=== PATIENT | female | born 1975 | race Caucasian/White ===

== ENCOUNTER → 2016-07-03 | Outpatient (CLI) | payer BC, OTHER ==
[~2016-07-03] MED LIST: ASPI81TA28 PO; CYAN500T PO; ENOX100I SQ; ENOX40IN SQ; LABE100T16 PO; METO25TA56 PO; MISCCAP52 PO; NIAC500T7 PO; PRENTAB26 PO; SERAPEPTASE PO; VNTHFA/IN INH
--- NOTE | 2016-07-03 14:21 | DIAGNOSTIC IMAGING REPORT ---
CHEST 2 VIEWS ROUTINE CLINICAL HISTORY: Cough, lower respiratory tract infection. COMPARISON STUDY: No previous studies for comparison. FINDINGS: The cardiac and mediastinal contours are normal. There is no evidence of focal pulmonary consolidation. There is no evidence of failure. No pleural effusions are visualized.[ IMPRESSION: No active disease in the chest. Electronically signed by: Matthew Burk M.D. 07/03/2016 2:20 PM Dictated Date/Time: 07/03/2016 2:19 PM
== END | disposition home or self-care (01) ==
LOC: C.RAD 14:05
PROVIDERS: ATTEND Plastic Surgery
DX: J22 Unspecified acute lower respiratory infection (principal)

== ENCOUNTER 2016-09-17 17:39 | Emergency (ER) | payer BC, OTHER ==
[~2016-09-17] VITALS: Ht 172.7 cm; Wt 99.3 kg
[~2016-09-17 17:39] MED LIST changes: -ASPI81TA28 PO; -CYAN500T PO; -ENOX100I SQ; -ENOX40IN SQ; -METO25TA56 PO; -MISCCAP52 PO; -NIAC500T7 PO; -SERAPEPTASE PO; -VNTHFA/IN INH
[2016-09-17 17:48] VITALS: TEMP 36.7; Ht 172.7 cm; Wt 99.3 kg
[2016-09-17] MEDS ORDERED: NIAC500T7 PO (18:22)
[2016-09-17] MEDS ORDERED: SERAPEPTASE PO (18:22)
[2016-09-17] MEDS ORDERED: CYAN500T PO (18:22)
[2016-09-17] MEDS ORDERED: VNTHFA/IN INH (18:22)
[2016-09-17] MEDS ORDERED: MISCCAP52 PO (18:22)
[2016-09-17] MEDS ORDERED: METO25TA56 PO (18:22)
--- NOTE | 2016-09-17 18:32 | EMERGENCY ROOM VISIT NOTE ---
History First contact with patient: 17:54 Chief Complaint: LEG PAIN,LEG INJURY Stated Complaint: LEG PAIN RIGHT History of Present Illness The patient is a 41 year old female who presents to the Emergency Room via private vehicle with complaints of "leg pain right". The patient states that Tuesday or Tuesday she began with intermittent right leg pain. She then states that pain began persistent on the right medial aspect of her leg from the right ankle to the right medial proximal thigh. This is persistent for the past few days. She notes that there is no associated redness. She is currently 6-8 weeks . She was concerned, and was seen by her family doctor today [facility], who referred her here for an ultrasound of the right his leg over concern for DVT. The patient does have a history of superficial thrombophlebitis, but no DVT. She denies any fevers, chills, chest pain, shortness of breath. Review of Systems A complete 6-point Review of Systems was discussed with the patient, with pertinent positives and negatives listed in the History of Present Illness. All remaining Review of Systems questions can be considered negative unless otherwise specified. Past Medical/Surgical History High blood pressure, asthma as a child, tonsils and adenoids, T extraction, Family History High blood pressure, cancer, COPD Social History Smoking Status: Never Smoker Marital Status: Occupation Status: unemployed Social History: She lives at home with and children. She is unemployed. Current/Historical Medications Scheduled Cyanocobalamin (Vitamin B-12), Unknown Dose PO DAILY Enoxaparin (Lovenox), 100 MG SQ Q12 Misc Natural Products (Turmeric Curcumin), 1 CAP PO DAILY Multivit/Min/Iron/Fol Ac/Pren ( Vitamin), 1 TAB PO DAILY Niacinamide (Niacin), Unknown Dose PO DAILY [Serapeptase], 1 TAB PO DAILY Scheduled PRN Albuterol Hfa (Ventolin Hfa), 2 PUFFS INH Q4 PRN for Wheezing Metoprolol Tartrate (Lopressor) (Lopressor), 12.5 MG PO DAILY PRN for HIGH BP Allergies Coded Allergies: No Known Allergies (Verified , 08/04/06) Physical Exam Vital Signs Date Time Temp Pulse Resp B/P Pulse Ox O2 Delivery O2 Flow Rate FiO2 09/17/16 21:44 109 138/98 97 Room Air 09/17/16 19:43 112 142/81 99 Room Air 09/17/16 17:48 36.7 115 18 164/104 99 Room Air Physical Exam VITAL SIGNS - Vital signs and nursing notes were reviewed. Patient is afebrile , hypertensive at 164/104, tachycardic at a rate of 115 bpm, and is saturating well on room air 99%. GENERAL -41-year-old female appearing her stated age who is in no acute distress. Communicates well with provider and answers questions appropriately. SKIN - Without rashes. HEAD - NC/AT. EYES - Sclera anicteric. Palpebral conjunctiva pink and moist with no injection noted. EARS - No deformities of external structures noted on gross examination bilaterally. NOSE - Midline and without cyanosis. No epistaxis or purulent drainage noted. MOUTH/OROPHARYNX - Without perioral cyanosis. Buccal mucosa pink and moist and without leukoplakia. EXTREMITIES - No clubbing or peripheral cyanosis. There is edema of the right lower extremity noted, with erythema on the medial aspect in a linear nature from the right groin to the right ankle. This area is slightly raised, and is warm to palpation. This region is also tenderness to palpation. Medical Decision & Procedures ER Provider Diagnostic Interpretation: RIGHT LOWER EXTREMITY VENOUS DOPPLER HISTORY: Right leg edema, erythema, Right COMPARISON STUDY: Right leg venous Doppler 05/14/2009. FINDINGS: There is normal compressibility, flow, and augmentation within the right lower extremity deep venous system. Thrombosed is within the mid to distal greater saphenous vein. There are also multiple thrombosed superficial varicosities within the medial thigh and calf. IMPRESSION: No DVT within the right lower extremity. Multiple thrombosed superficial veins within the right leg including the greater saphenous vein. Electronically signed by: Luke Franco M.D. 09/17/2016 6:48 PM Dictated Date/Time: 09/17/2016 6:46 PM Laboratory Results 09/17/16 19:25 Red Blood Count 4.69, Mean Corpuscular Volume 85.1, Mean Corpuscular Hemoglobin 28.4, Mean Corpuscular Hemoglobin Concent 33.3, Mean Platelet Volume 9.2, Neutrophils (%) (Auto) 69.2, Lymphocytes (%) (Auto) 23.4, Monocytes (%) (Auto) 6.3, Eosinophils (%) (Auto) 0.7, Basophils (%) (Auto) 0.2, Neutrophils # (Auto) 6.37, Lymphocytes # (Auto) 2.15, Monocytes # (Auto) 0.58, Eosinophils # (Auto) 0.06, Basophils # (Auto) 0.02 09/17/16 19:25 Test 09/17/16 19:25 White Blood Count 9.20 K/uL (4.8-10.8) Red Blood Count 4.69 M/uL (4.2-5.4) Hemoglobin 13.3 g/dL (12.0-16.0) Hematocrit 39.9 % (37-47) Mean Corpuscular Volume 85.1 fL (80-100) Mean Corpuscular Hemoglobin 28.4 pg (25-34) Mean Corpuscular Hemoglobin Concent 33.3 g/dl (32-36) Platelet Count 161 K/uL (130-400) Mean Platelet Volume 9.2 fL (7.4-10.4) Neutrophils (%) (Auto) 69.2 % Lymphocytes (%) (Auto) 23.4 % Monocytes (%) (Auto) 6.3 % Eosinophils (%) (Auto) 0.7 % Basophils (%) (Auto) 0.2 % Neutrophils # (Auto) 6.37 K/uL (1.4-6.5) Lymphocytes # (Auto) 2.15 K/uL (1.2-3.4) Monocytes # (Auto) 0.58 K/uL (0.11-0.59) Eosinophils # (Auto) 0.06 K/uL (0-0.5) Basophils # (Auto) 0.02 K/uL (0-0.2) RDW Standard Deviation 41.0 fL (36.4-46.3) RDW Coefficient of Variation 13.3 % (11.5-14.5) Immature Granulocyte % (Auto) 0.2 % Immature Granulocyte # (Auto) 0.02 K/uL (0.00-0.02) Anion Gap 6.0 mmol/L (3-11) Est Creatinine Clear Calc Drug Dose 134.8 ml/min Estimated GFR () 125.7 Estimated GFR (Non- 108.4 BUN/Creatinine Ratio 13.8 (10-20) Calcium Level 9.2 mg/dl (8.5-10.1) Total Bilirubin 0.2 mg/dl (0.2-1) Aspartate Amino Transf (AST/SGOT) 40 U/L (15-37) Alanine Aminotransferase (ALT/SGPT) 73 U/L (12-78) Alkaline Phosphatase 71 U/L (45-117) Total Protein 6.9 gm/dl (6.4-8.2) Albumin 3.7 gm/dl (3.4-5.0) Globulin 3.2 gm/dl (2.5-4.0) Albumin/Globulin Ratio 1.2 (0.9-2) Human Chorionic Gonadotropin, Qual POS (NEG) Medications Administered Medications (Trade) Dose Ordered Sig/Milind Route Start Time Stop Time Status Last Admin Dose Admin Enoxaparin Sodium (Lovenox Inj) 100 mg NOW STAT SQ 09/17/16 19:41 09/17/16 19:42 DC 09/17/16 20:28 100 MG Miscellaneous (Lovenox Teaching Kit) 1 ea PRN STAT N/A 09/17/16 19:41 09/17/16 19:42 DC 09/17/16 19:41 1 EA Medical Decision Patient was seen and evaluated as above. After obtaining a thorough history and physical examination ultrasound was obtained the right lower extremity. Results as above. Patient was offered pain medication, but due to the fact that she was , Tylenol was all that was appropriate and she had already taken this earlier in the day. The ultrasound reveals no DVT, but numerous superficial venous thrombosis, and some of the larger superficial veins. There is concern, because current literature does support anticoagulating individuals in the proper setting. I did discuss the case with my attending, and subsequently the on-call CUP MACHINE OPERATOR, Dr. Seaman. The call to place around 7 PM. We discussed potential treatment for the patient, and the general consensus was to discussed with hematology or guarding whether or not to anticoagulate the patient. I then decided to discuss the case, with Dr. Greene, a specialist regarding anticoagulation. She recommended that in this setting the patient should be placed upon Lovenox, 1 mg/kg twice a day for the duration of her . She also noted that she would like to have the peaks and troughs monitored of the Lovenox. It seems like the best way to have this occur was through her being referred to the coagulation clinic. I then had the binder caser discuss this with the patient, who is to call the patient Tuesday morning regarding an appointment as well as to establish an appointment. The decision to begin anticoagulation was through the utilization of an algorithm as the patient was negative for DVT on duplex but positive for SVT, therefore she was evaluated for VTE risk factors and is . After reviewing benefits versus risk of prophylactic anticoagulation, the decision was made to anticoagulate the patient. Prior to starting Lovenox, I did discuss the case with the pharmacist, and decided to obtain baseline labs. CBC is unremarkable, platelet count is appropriate, CMP reveals chloride high at 108, kidney function is excellent, glucose of 116, and AST of 40. HCG was positive. Patient was informed upon the AST elevation of 40. She was also educated upon how to administer Lovenox injections, her first dose was given here, at 100 mg. Her weight was confirmed, she is roughly 99 kg. The nurse who provided education regarding administration, notes that the patient had a very difficult time and was unable to administer the medication secondary to what appears to be fear. The patient's agreed to administer the injections. I do believe this is appropriate. A prescription for Lovenox, 100 mg twice a day 30 days will be provided the patient. Subsequent prescriptions will have to come from were follows medication as her weight will change throughout the . The patient was educated upon worrisome symptoms in which to return , had questions prior to discharge and was discharged home in good condition. In evaluation treatment this patient the following differential diagnoses were entertained: DVT, SVT,., Cellulitis, among others. Impression Primary Impression: Acute superficial venous thrombosis of right lower extremity Additional Impression: Elevated AST (SGOT) Departure Information Dispostion Home / Self-Care Condition GOOD Prescriptions Enoxaparin (LOVENOX) 100 Mg/Ml Inj 100 MG SQ Q12 for 30 Days, #60 SYR Prov: Ricco Obando PA-C 09/17/16 Referrals Randee Connolly C.R.N.P (PCP) Patient Instructions My [facility] Additional Instructions You were seen in the emergency department for your leg pain and swelling. Ultrasound has revealed multiple superficial venous thromboses. It is recommended that you begin taking Lovenox, every 12 hours throughout your . You've been provided with the first 30 day supply, but continuing supply will have to be written by another provider. Please inject this as you were educated upon hearing the emergency department. Because of this medication, it is recommended that you follow-up with the coagulation clinic. As we discussed, binder caser are calling to establish an appointment for you at the coagulation clinic (people who manage lovenox) , and you should be notified Tuesday. If you do not hear about an appointment from us by Tuesday via phone call please call back here to the emergency department at [phone] Please keep your appointment with your CUP MACHINE OPERATOR. Please call your family doctor to schedule follow-up regarding today's visit. Your AST was slightly high today, this is a liver chemical. Please return to the emergency department with any new/concerning symptoms. For your leg pain you may continue the Tylenol, elevate your leg as well as warm compresses. Thank you for your time, and please return to emergency department with any new/ concerning symptoms. Problem Qualifiers
--- NOTE | 2016-09-17 18:49 | DIAGNOSTIC IMAGING REPORT ---
RIGHT LOWER EXTREMITY VENOUS DOPPLER HISTORY: Right leg edema, erythema, Right COMPARISON STUDY: Right leg venous Doppler 05/14/2009. FINDINGS: There is normal compressibility, flow, and augmentation within the right lower extremity deep venous system. Thrombosed is within the mid to distal greater saphenous vein. There are also multiple thrombosed superficial varicosities within the medial thigh and calf. IMPRESSION: No DVT within the right lower extremity. Multiple thrombosed superficial veins within the right leg including the greater saphenous vein. Electronically signed by: Luke Franco M.D. 09/17/2016 6:48 PM Dictated Date/Time: 09/17/2016 6:46 PM
[2016-09-17 19:35] LABS: BASO % 0.2 %; BASO ABS # 0.02 K/uL (0-0.2); COMPLETE YES; EOS % 0.7 %; HEMATOCRIT 39.9 % (37-47); IG% 0.2 %; LYMPH % 23.4 %; LYMPH ABS # 2.15 K/uL (1.2-3.4); MEAN CELL VOLUME 85.1 fL (80-100); MEAN CORPUSCULAR HEMOGLOBIN 28.4 pg (25-34); MEAN CORPUSCULAR HGB CONC 33.3 g/dl (32-36); MEAN PLATELET VOLUME 9.2 fL (7.4-10.4); MONO % 6.3 %; NEUT % 69.2 %; PLATELET COUNT 161 K/uL (130-400); RED BLOOD COUNT 4.69 M/uL (4.2-5.4)
[2016-09-17] MEDS ORDERED: LOVENOX TEACHING KIT STA (19:41)
[2016-09-17] MEDS ORDERED: ENOXAPARIN 100 MG/1ML SYR SQ STA (19:41)
[2016-09-17 19:56] LABS: PREG INTERNAL NEGATIVE QC NEG CLEAR BACKGROUND; PREG INTERNAL POSITIVE QC POS CONTROL LINE
[2016-09-17 19:59] LABS: BUN/CREATININE RATIO 13.8 (10-20); CALCIUM 9.2 mg/dl (8.5-10.1); CREATININE 0.67 mg/dl (0.60-1.20); POTASSIUM 3.8 mmol/L (3.5-5.1)
[2016-09-17 20:02] LABS: ALB/GLOB RATIO 1.2 (0.9-2)
[2016-09-17] MEDS ORDERED: ENOX100I SQ (21:04)
[2016-09-17 21:44] VITALS: BP 138/98; PULSE 109; O2SAT 97
[2016-12-14] MEDS ORDERED: ASPI81TA28 PO (10:32)
[2016-12-14] MEDS ORDERED: ENOX40IN SQ (10:32)
== END 2016-09-17 21:53 | disposition home or self-care (01) ==
LOC: C.EDB 17:40 → C.EDD 21:53
DX: O22 Venous complications and hemorrhoids in pregnancy (principal); I82.811 Embolism and thrombosis of superficial veins of right lower extremity; Z3A.01 Less than 8 weeks gestation of pregnancy; Z82.49 Family history of ischemic heart disease and other diseases of the circulatory system; Z80.9 Family history of malignant neoplasm, unspecified; Z83.6 Family history of other diseases of the respiratory system; Z79.899 Other long term (current) drug therapy

== ENCOUNTER → 2016-09-24 | Outpatient (CLI) | payer BC, OTHER ==
[~2016-09-24] MED LIST changes: +ASPI81TA28 PO; +CYAN500T PO; +ENOX100I SQ; +ENOX40IN SQ; -LABE100T16 PO; +NIAC500T7 PO
[2016-09-24 14:27] LABS: URINE APPEARANCE CLEAR (CLEAR); URINE BILIRUBIN NEG (NEG); URINE COLOR YELLOW; URINE NITRITE NEG (NEG); URINE PH 6.5 (4.5-7.5); URINE SPECIFIC GRAVITY 1.011 (1.000-1.030); UROBILINOGEN NEG (NEG)
[2016-09-24 14:33] LABS: MANUAL MICROSCOPIC REQUIRED? NO; REVIEW REQ? NO
== END | disposition home or self-care (01) ==
LOC: C.LABSPEC 13:43
PROVIDERS: ATTEND Obstetrics & Gynecology
DX: O09.529 Supervision of elderly multigravida, unspecified trimester (principal); Z3A.00 Weeks of gestation of pregnancy not specified

== ENCOUNTER → 2016-09-30 | Outpatient (CLI) | payer BC, OTHER ==
[2016-09-30 12:01] LABS: BASO % 0.2 %; BASO ABS # 0.01 K/uL (0-0.2); COMPLETE YES; EOS % 0.2 %; IG% 0.2 %; LYMPH % 27.9 %; LYMPH ABS # 1.83 K/uL (1.2-3.4); MEAN CELL VOLUME 85.9 fL (80-100); MEAN CORPUSCULAR HEMOGLOBIN 28.4 pg (25-34); MEAN CORPUSCULAR HGB CONC 33.1 g/dl (32-36); MEAN PLATELET VOLUME 9.2 fL (7.4-10.4); MONO % 6.4 %; NEUT % 65.1 %; PLATELET COUNT 221 K/uL (130-400); RED BLOOD COUNT 4.54 M/uL (4.2-5.4); WHITE BLOOD COUNT 6.57 K/uL (4.8-10.8)
== END | disposition home or self-care (01) ==
LOC: C.LAB1850 10:02
PROVIDERS: ATTEND Obstetrics & Gynecology
DX: O09.529 Supervision of elderly multigravida, unspecified trimester (principal); Z3A.00 Weeks of gestation of pregnancy not specified

== ENCOUNTER → 2016-09-30 | Outpatient (CLI) | payer BC, OTHER | END | disposition home or self-care (01) | LOC: C.PAPS 14:27 | PROVIDERS: ATTEND Obstetrics & Gynecology | DX: Z01.419 Encounter for gynecological examination (general) (routine) without abnormal findings (principal) ==

== ENCOUNTER → 2016-09-30 | Outpatient (CLI) | payer BC, OTHER ==
[2016-10-05 09:57] LABS: CHLAMYDIA TRACH RNA*** NOT DETECTED (NOT DETECTED); GC (NEIS GONORRHOEAE)RNA** NOT DETECTED (NOT DETECTED)
== END | disposition home or self-care (01) ==
LOC: C.LABSPEC 13:35
PROVIDERS: ATTEND Obstetrics & Gynecology
DX: O09.529 Supervision of elderly multigravida, unspecified trimester (principal); Z3A.00 Weeks of gestation of pregnancy not specified

== ENCOUNTER → 2016-10-08 | Outpatient (CLI) | payer BC, OTHER ==
[2016-10-08 09:59] LABS: PATIENT HEIGHT 170.2 cm
[2016-10-08 12:47] LABS: URINE TOTAL PROTEIN 5.3 mg/dl (0-11.9)
[2016-10-08 14:53] LABS: CREATININE 0.61 mg/dl (0.6-1.2); URINE TOTAL PROTEIN CALC 135.2 mg/24 hr (0-149.1)
== END | disposition home or self-care (01) ==
LOC: C.LAB1850 09:34 → EDSTATUS 10-11 11:35
PROVIDERS: ATTEND Obstetrics & Gynecology
DX: O09.521 Supervision of elderly multigravida, first trimester (principal); Z3A.00 Weeks of gestation of pregnancy not specified; O10.411 Pre-existing secondary hypertension complicating pregnancy, first trimester

== ENCOUNTER → 2016-11-08 | Outpatient (CLI) | payer BC, OTHER ==
[2016-11-08 13:14] LABS: ALT/SGPT 39 U/L (12-78); BLOOD UREA NITROGEN 6 mg/dl (7-18); CARBON DIOXIDE 22 mmol/L (21-32); CHLORIDE 110 mmol/L (98-107); CREATININE 0.62 mg/dl (0.60-1.20); GLUCOSE 91 mg/dl (70-99); POTASSIUM 3.9 mmol/L (3.5-5.1); SODIUM 141 mmol/L (136-145)
[2016-11-08 13:17] LABS: ALB/GLOB RATIO 0.9 (0.9-2); ALKALINE PHOSPHATASE 53 U/L (45-117); AST/SGOT 20 U/L (15-37)
== END | disposition home or self-care (01) ==
LOC: C.LABPVFM 10:31
PROVIDERS: ATTEND Nurse Practitioner
DX: I10 Essential (primary) hypertension (principal)

== ENCOUNTER → 2016-11-22 | Outpatient (CLI) | payer BC, OTHER ==
[~2016-11-22] MED LIST changes: -ASPI81TA28 PO; -ENOX40IN SQ
--- NOTE | 2016-11-22 11:03 | DIAGNOSTIC IMAGING REPORT ---
ULTRASOUND VENOUS DOPPLER ULTRASOUND OF THE RIGHT LOWER EXTREMITY CLINICAL HISTORY: Superficial thrombophlebitis COMPARISON STUDY: 09/17/2016 FINDINGS: Real-time and color flow Doppler imaging were performed. Flow was seen within the femoral, popliteal and calf veins with no intraluminal thrombus demonstrated. The saphenous vein is patent. Thrombosed varicosities are again visualized within the right medial distal thigh and proximal calf. IMPRESSION: 1. No evidence of right lower extremity DVT 2. Persistent thrombosed superficial varicosities within the right medial distal thigh and proximal calf Electronically signed by: Matthew Burk M.D. 11/22/2016 11:02 AM Dictated Date/Time: 11/22/2016 11:00 AM
== END | disposition home or self-care (01) ==
LOC: C.ULTR 09:33
PROVIDERS: ATTEND Internal Medicine Hematology & Oncology
DX: I80.01 Phlebitis and thrombophlebitis of superficial vessels of right lower extremity (principal)

== ENCOUNTER → 2016-11-23 | Outpatient (CLI) | payer BC, OTHER ==
[~2016-11-23] MED LIST changes: +ASPI81TA28 PO; +ENOX40IN SQ
[2016-11-24 15:20] LABS: AFP CONCENTRATION 16.8 NG/ML; AFPTS GESTATIONAL AGE 17.4 WEEKS; AFPTS INSULIN DEP DIABETIC? YES; AFPTS MATERNAL WT 215 LBS; ALPHA-FETOPROTEIN RACE CAUCASIAN=W; HISTORY OF NTD NO; REPEAT SAMPLE? NO
== END | disposition home or self-care (01) ==
LOC: C.LAB1850 09:50
PROVIDERS: ATTEND Obstetrics & Gynecology
DX: O09.522 Supervision of elderly multigravida, second trimester (principal); Z3A.00 Weeks of gestation of pregnancy not specified

== ENCOUNTER → 2017-02-08 | Outpatient (CLI) | payer BC, OTHER ==
[~2017-02-08] MED LIST changes: -CYAN500T PO; -ENOX100I SQ; -NIAC500T7 PO
[2017-02-08 12:01] LABS: URINE APPEARANCE CLEAR (CLEAR); URINE BILIRUBIN NEG (NEG); URINE COLOR YELLOW; URINE NITRITE NEG (NEG); URINE SPECIFIC GRAVITY 1.012 (1.000-1.030); UROBILINOGEN NEG (NEG)
[2017-02-08 12:09] LABS: MANUAL MICROSCOPIC REQUIRED? NO; REVIEW REQ? NO
[2017-02-08 12:24] LABS: HEMATOCRIT 31.1 % (37-47)
== END | disposition home or self-care (01) ==
LOC: C.LAB1850 10:40
PROVIDERS: ATTEND Obstetrics & Gynecology
DX: O09.522 Supervision of elderly multigravida, second trimester (principal); Z3A.00 Weeks of gestation of pregnancy not specified

== ENCOUNTER → 2017-05-06 | Outpatient (CLI) | payer BC, OTHER ==
[2017-05-06 13:01] LABS: BLOOD UREA NITROGEN 12 mg/dl (7-18); CARBON DIOXIDE 28 mmol/L (21-32); CREATININE 0.83 mg/dl (0.60-1.20); GLUCOSE 92 mg/dl (70-99); POTASSIUM 4.3 mmol/L (3.5-5.1); SODIUM 140 mmol/L (136-145)
== END | disposition home or self-care (01) ==
LOC: C.LABPVFM 10:45
PROVIDERS: ATTEND Nurse Practitioner
DX: I10 Essential (primary) hypertension (principal)

== ENCOUNTER → 2017-06-29 | Outpatient (CLI) | payer BC, OTHER | END | disposition home or self-care (01) | LOC: C.LABSPEC 14:06 | PROVIDERS: ATTEND Physician Assistant | DX: Z30.430 Encounter for insertion of intrauterine contraceptive device (principal) ==